=== PATIENT | female | born 2000 | race Caucasian/White ===

== ENCOUNTER 2022-04-22 07:45 | Inpatient (IN) ==
[2022-04-22] MEDS ORDERED: LIDOCAINE 1% LOCAL 20 ML VIAL INFIL PRN (07:52)
[2022-04-22] MEDS ORDERED: OXYTOCIN 30 UNITS/500 ML BAG IV PRN (07:52)
[2022-04-22 08:28] LABS: Hematocrit (blood only) 34.5 % (37.0-47.0); Mean Corpuscular Hemoglobin 29.4 pg (25.0-34.0); Mean Corpuscular Hgb Conc 34.8 g/dL (32.0-36.0); Mean Corpuscular Volume 84.6 fL (80.0-100.0); Mean Platelet Volume 9.6 fL (9.4-12.4); Platelet Count 252 K/uL (130-400); RDW Coefficient of Variation 14.5 % (11.5-14.5); RDW Standard Deviation 44.6 fL (36.4-46.3); Red Blood Count 4.08 M/uL (4.20-5.40); White Blood Count 12.09 K/ul (4.8-10.8)
[2022-04-22] MEDS: LACTATED RINGER'S 1,000 ML IV PRN (08:57)
--- NOTE | 2022-04-22 11:48 | Labor Progress Brief Note ---
Date of Service April 22, 2022 Assessment & Plan Admission and Anticipated Discharge Date Admission Date: April 22, 2022 Physical Exam Genitourinary: OB Exam Abdomen: + fundal height and + vertex Manual OB Exam: + cervical dilation fingertip, + cervical effacement 20% and + station high OB Exam Monitor Tracing: + external FHT monitor used, + external uterine monitor used, + category I and + normal FHT variability Cervix is posterior/firm/long closed and thick EFW [address] Cervidil for ripening Results & Data ([facility]) Vital Signs (Past 12 Hours) Vital Signs Temp Pulse Resp BP Pulse Ox O2 Del Method 04/22/22 09:13 37.1 C 20 Room Air 04/22/22 09:26 96 04/22/22 09:26 114 H 04/22/22 07:57 123 H 121/70
[2022-04-22] MEDS ORDERED: DINOPROSTONE 10 MG INSERT PV ONE (12:00)
--- NOTE | 2022-04-22 12:14 | Labor Progress Brief Note ---
Date of Service April 22, 2022 Assessment & Plan Admission and Anticipated Discharge Date Admission Date: April 22, 2022 Physical Exam Genitourinary: OB Exam Monitor Tracing: + external FHT monitor used, + external uterine monitor used, + category I and + normal FHT variability Cervidil 10 mg placed vaginally Results & Data ([facility]) Vital Signs (Past 12 Hours) Vital Signs Temp Pulse Resp BP Pulse Ox O2 Del Method 04/22/22 09:13 37.1 C 20 Room Air 04/22/22 12:11 104 H 04/22/22 12:11 114/81 04/22/22 09:26 96 04/22/22 09:26 114 H 04/22/22 07:57 123 H 121/70
[2022-04-23] MEDS ORDERED: BUTORPHANOL TARTRATE 1 MG/ML VIAL IV PRN (00:23)
[2022-04-23] MEDS ORDERED: miSOPROStoL 50 MCG TAB PO STA (00:23)
--- NOTE | 2022-04-23 00:27 | Labor Progress Brief Note ---
Date of Service April 23, 2022 Assessment & Plan Admission and Anticipated Discharge Date Admission Date: April 22, 2022 Physical Exam Genitourinary: Manual OB Exam: + cervical dilation 1 cm, + cervical effacement 50% and + station high OB Exam Monitor Tracing: + external FHT monitor used, + external uterine monitor used, + category I and + normal FHT variability Cervidil pulled out. Cervix is 1 cm and thick. Will start Cytotec for continued cervical ripening. Results & Data ([facility]) Vital Signs (Past 12 Hours) Vital Signs Temp Pulse Resp BP O2 Del Method 04/22/22 19:33 36.8 C 18 04/22/22 19:33 Room Air 04/22/22 15:00 Room Air 04/22/22 22:34 18 04/22/22 22:34 36.9 C 18 04/22/22 22:34 108 H 04/22/22 22:34 127/77 04/22/22 19:31 18 04/22/22 19:31 36.8 C 18 04/22/22 19:31 114 H 04/22/22 19:31 123/81 04/22/22 15:04 20 04/22/22 15:04 36.7 C 20 04/22/22 15:04 116 H 04/22/22 15:04 132/78
[2022-04-23] MEDS ORDERED: OXYTOCIN 30 UNITS/500 ML BAG IV PRN ×2 (07:19→13:36)
--- NOTE | 2022-04-23 07:21 | Obstetrical Progress Note ---
Date of Service April 23, 2022 Assessment & Plan (1) 40 weeks gestation of : Plan: Start oxytocin for augmentation, epidural at patient request Anticipate spontaneous vaginal delivery Admission and Anticipated Discharge Date Admission Date: April 22, 2022 Subjective Patient comfortable in bed, had worse contractions overnight and received 1 dose of Stadol. No complaints at this time Physical Exam Constitutional: WD/WN, vitals as above Genitourinary: heart tracing: Baseline 130, moderate variability, positive accelerations, no decelerations, category 1 tracing Tocometer: Irritable Cervix: 2-3/50/-1, AROM performed with moderate clear fluid, IUPC placed Results & Data ([facility]) Vital Signs (Past 12 Hours) Vital Signs Temp Pulse Resp BP Pulse Ox O2 Del Method 04/22/22 19:33 36.8 C 18 04/22/22 19:33 Room Air 04/23/22 07:06 20 04/23/22 07:06 36.9 C 20 04/23/22 07:09 100 H 120/78 04/23/22 04:32 36.6 C 101 H 18 123/81 04/23/22 02:26 95 04/23/22 02:26 100 H 04/23/22 02:26 98 H 94 04/23/22 02:21 105 H 97 04/23/22 02:20 100 H 94 04/23/22 02:16 105 H 93 04/23/22 02:14 104 H 94 04/23/22 02:11 106 H 94 04/23/22 02:06 107 H 94 04/23/22 02:04 105 H 94 04/23/22 02:01 106 H 95 04/23/22 01:57 109 H 94 04/23/22 01:56 106 H 95 04/23/22 01:52 107 H 94 04/23/22 01:51 109 H 94 04/23/22 01:46 106 H 94 04/23/22 01:47 104 H 94 04/23/22 01:41 95 04/23/22 01:41 106 H 04/23/22 01:41 102 H 94 04/23/22 01:36 103 H 95 04/23/22 01:35 109 H 94 04/23/22 01:31 100 H 98 04/23/22 01:26 95 02/15/23 01:26 102 H 04/23/22 01:26 102 H 137/68 04/22/22 22:34 18 04/22/22 22:34 36.9 C 18 04/22/22 22:34 108 H 04/22/22 22:34 127/77 04/22/22 19:31 18 04/22/22 19:31 36.8 C 18 04/22/22 19:31 114 H 04/22/22 19:31 123/81
[2022-04-23] MEDS ORDERED: fentaNYL citrate 100 MCG/2 ML VIAL ONE (07:48)
[2022-04-23] MEDS ORDERED: ePHEDrine sulfate 50 MG/ML AMP ONE (07:48)
[2022-04-23] MEDS ORDERED: SODIUM CHLORIDE 0.9% INJ 10 ML VIAL ONE (07:48)
[2022-04-23] MEDS ORDERED: BUPIVACAINE 0.25% 30 ML VIAL ONE (07:49)
[2022-04-23] MEDS ORDERED: LIDOCAINE 2%/EPINEPHRINE 1:200,000 20 ML SDV ONE (07:49)
[2022-04-23] MEDS ORDERED: fentaNYL 2MCG/ML ROPIVACAINE 1.25MG/ML 100 ML BAG EPI ONE (07:50)
[2022-04-23] MEDS: LACTATED RINGER'S 1,000 ML IV PRN (08:09)
[2022-04-23] MEDS ORDERED: NALOXONE HCL 0.4 MG/1 ML VIAL/CARP IV PRN (08:31)
[2022-04-23] MEDS ORDERED: diphenhydrAMINE 50 MG/ML VIAL IV PRN (08:31)
[2022-04-23] MEDS ORDERED: fentaNYL 2MCG/ML ROPIVACAINE 1.25MG/ML 100 ML BAG EPI PRN (08:31)
[2022-04-23] MEDS ORDERED: NALOXONE HCL 1 MG in SODIUM CHLORIDE 0.9% 1000ML 1,000 ML IV PRN (08:31)
[2022-04-23] MEDS ORDERED: NALBUPHINE HCL INJ 10 MG/ML AMP IV PRN (08:31)
[2022-04-23] MEDS ORDERED: ePHEDrine sulfate 50 MG/ML AMP IV PRN (08:31)
[2022-04-23] MEDS ORDERED: ONDANSETRON INJ 2 MG/ML 2 ML VIAL IV PRN (08:31)
--- NOTE | 2022-04-23 08:31 | Anesthesiology Consultation ---
Date of Service April 23, 2022 Assessment & Plan Chart Review Chart Review: Patient NOT seen in Pre Admission Testing and Acceptable Risk for Labor Epidural Consults Requested none ASA ASA2 Proposed Anesthesia Anesthesia Type: Labor Epidural Risk / Benefits Reviewed With: PT / POA / Parent / Guardian, Accepts Plan and Informed Consent Obtained History Height/Weight Height: 5 ft 3 in Weight: 108.862 kg Allergies Allergy/AdvReac Type Severity Reaction Status Date / Time duloxetine [From Cymbalta] Allergy Severe Depression Verified 04/06/22 14:47 Medications Home Medications Medication Instructions Recorded Confirmed Last Taken omega-3 fatty acids-fish oil 684 1 cap PO DAILY 04/17/22 04/22/22 04/21/22 mg-1,200 mg capsule,delayed release ondansetron HCl 4 mg tablet 4 mg PO Q6H PRN Nausea 04/17/22 04/22/22 04/14/22 2 0:00 prenat.vits,jarod,tun-anqw-ammpx 1 tab PO DAILY 04/17/22 04/22/22 04/21/22 Active Medications Generic Name Dose Route Start Last Admin Trade Name Freq PRN Reason Stop Dose Admin Butorphanol Tartrate 1 mg 04/23/22 00:23 04/23/22 01:32 Butorphanol Tartrate 1 Mg/Ml Vial IV 05/23/22 00:22 1 mg Q2HWA PRN Administration Pain Lactated Ringer's 1,000 mls @ 125 mls/hr 04/22/22 07:52 04/23/22 08:09 Lr IV 04/24/22 07:51 999 mls/hr .Q8H PRN Administration L&D Protocol Protocol Past Medical History Medical History Anemia Anxiety and depression Insomnia disorder Panic disorder Tension headache Exercise / Class Metabolic Activity II 4-5 Yardwork/Stairs/Walk up hill Past Family History Family History Father Myocardial infarction Father Hypertension Past Surgical History Surgical History Puposky teeth removed Past Anesthesia History No Hx of Anesthesia Complications and No Family Hx of Anesthesia Complications History of PONV No Hx of PONV and No Hx of Motion Sickness Social History Smoking Status: Never smoker Hx Alcohol Use: No Hx Substance Use: No substance use type: does not use Physical Exam Vital Signs Last Vital Signs Temp 36.9 C 04/23/22 07:06 Pulse 101 H 04/23/22 08:28 Resp 20 04/23/22 07:06 BP 110/56 L 04/23/22 08:28 Pulse Ox 97 04/23/22 08:27 O2 Del Method Room Air 04/22/22 19:33 ENMT Mouth: no dentition abnormality Thyromental Distance: > or= 3.5 Finger Breadths Mallampati Class: II Neck normal visual inspection Respiratory normal respiratory effort Auscultation: lungs clear to auscultation bilaterally Cardiovascular Rate/Rhythm: regular rate and regular rhythm Psychiatric Orientation: alert Testing Laboratory Results 04/22/22 08:13 Blood Type Cancelled 04/22/22 08:13 Blood Type O Positive 04/22/22 08:13 Antibody Screen Cancelled 04/22/22 08:13 Antibody Screen NEGATIVE 04/22/22 08:13
--- NOTE | 2022-04-23 11:47 | Obstetrical Progress Note ---
Date of Service April 23, 2022 Assessment & Plan (1) 40 weeks gestation of : Plan: Continue oxytocin for augmentation Anticipate spontaneous vaginal delivery Admission and Anticipated Discharge Date Admission Date: April 22, 2022 Subjective Patient comfortable in bed, no complaints Epidural in place Physical Exam Constitutional: WD/WN, vitals as above Genitourinary: FHT: baseline 130, mod variability, +accels, no decels cat I tracing Tony: q1-3 min pit at 10 Cx: 5/90/-1 small amount of caput noted approx 2 cm in size, no moulding noted. Sutures felt Results & Data ([facility]) Vital Signs (Past 12 Hours) Vital Signs Temp Pulse Resp BP Pulse Ox 04/23/22 11:42 92 H 99 04/23/22 11:38 89 124/79 04/23/22 11:37 82 98 04/23/22 11:32 93 H 97 04/23/22 11:27 93 H 94 04/23/22 11:24 90 94 04/23/22 11:22 93 H 94 04/23/22 11:23 90 128/74 04/23/22 11:17 95 04/23/22 11:17 92 H 04/23/22 11:17 93 H 94 04/23/22 11:12 92 H 94 04/23/22 11:11 92 H 94 04/23/22 11:08 95 H 135/72 04/23/22 11:07 97 H 93 04/23/22 11:06 96 H 94 04/23/22 11:02 97 H 95 04/23/22 11:00 87 20 94 04/23/22 10:57 93 H 92 04/23/22 10:54 82 94 04/23/22 10:52 84 93 04/23/22 10:53 97 H 137/76 04/23/22 10:47 94 04/23/22 10:47 94 H 04/23/22 10:47 86 93 04/23/22 10:42 94 H 92 04/23/22 10:39 93 H 93 04/23/22 10:38 94 H 122/69 04/23/22 10:37 97 H 94 04/23/22 10:32 92 H 93 04/23/22 10:27 94 H 94 04/23/22 10:23 93 H 04/23/22 10:22 90 94 04/23/22 10:23 93 H 128/69 94 04/23/22 10:17 94 H 94 04/23/22 10:12 94 04/23/22 10:12 98 H 04/23/22 10:12 97 H 94 04/23/22 10:09 90 124/76 04/23/22 10:07 94 04/23/22 10:07 95 H 04/23/22 10:07 93 H 94 04/23/22 10:02 99 H 93 04/23/22 10:01 91 H 92 04/23/22 09:57 100 H 95 04/23/22 09:54 102 H 94 04/23/22 09:52 95 H 94 04/23/22 09:53 96 H 122/76 04/23/22 09:49 97 H 94 04/23/22 09:47 99 H 94 04/23/22 09:43 95 H 94 04/23/22 09:42 98 H 94 04/23/22 09:38 96 H 129/72 04/23/22 09:37 95 H 94 04/23/22 09:32 100 H 92 04/23/22 09:27 102 H 95 04/23/22 09:24 105 H 130/74 94 04/23/22 09:22 100 H 97 04/23/22 09:19 99 H 94 04/23/22 09:17 109 H 95 04/23/22 09:16 101 H 124/73 04/23/22 09:12 98 H 95 04/23/22 09:07 108 H 96 04/23/22 09:02 104 H 98 04/23/22 08:57 108 H 97 04/23/22 08:55 18 04/23/22 08:55 36.9 C 18 04/23/22 08:52 105 H 132/73 96 04/23/22 08:49 101 H 133/73 04/23/22 08:47 100 H 96 04/23/22 08:43 111 H 104/58 L 04/23/22 08:42 103 H 95 04/23/22 08:41 108 H 97/55 L 94 04/23/22 08:40 98 H 79/51 L 04/23/22 08:38 106 H 75/51 L 04/23/22 08:37 96 04/23/22 08:37 94 H 04/23/22 08:37 96 H 115/54 L 04/23/22 08:34 100 H 108/52 L 04/23/22 08:32 98 H 102/57 L 96 04/23/22 08:30 96 H 104/53 L 04/23/22 08:28 101 H 110/56 L 04/23/22 08:27 102 H 97 04/23/22 08:26 101 H 116/55 L 04/23/22 08:24 101 H 120/57 L 04/23/22 08:22 101 H 127/59 L 96 04/23/22 08:20 102 H 125/77 04/23/22 08:17 106 H 96 04/23/22 08:12 104 H 99 04/23/22 08:07 112 H 98 04/23/22 08:02 99 H 98 04/23/22 07:06 20 04/23/22 07:06 36.9 C 20 04/23/22 07:09 100 H 120/78 04/23/22 04:32 36.6 C 101 H 18 123/81 04/23/22 02:26 95 04/23/22 02:26 100 H 04/23/22 02:26 98 H 94 04/23/22 02:21 105 H 97 04/23/22 02:20 100 H 94 04/23/22 02:16 105 H 93 04/23/22 02:14 104 H 94 04/23/22 02:11 106 H 94 04/23/22 02:06 107 H 94 04/23/22 02:04 105 H 94 04/23/22 02:01 106 H 95 04/23/22 01:57 109 H 94 04/23/22 01:56 106 H 95 04/23/22 01:52 107 H 94 04/23/22 01:51 109 H 94 04/23/22 01:46 106 H 94 04/23/22 01:47 104 H 94 04/23/22 01:41 95 04/23/22 01:41 106 H 04/23/22 01:41 102 H 94 04/23/22 01:36 103 H 95 04/23/22 01:35 109 H 94 04/23/22 01:31 100 H 98 04/23/22 01:26 95 04/23/22 01:26 102 H 04/23/22 01:26 102 H 137/68
[2022-04-23] MEDS ORDERED: NURSING L&D Epidural Breakthrough Pain Update ONE (12:25)
[2022-04-23] MEDS ORDERED: oxyCODONE/ACETAMINOPHEN 5mg/325mg TAB PO PRN (13:36)
[2022-04-23] MEDS ORDERED: ACETAMINOPHEN 325 MG TAB PO PRN (13:36)
[2022-04-23] MEDS ORDERED: BENZOCAINE 20% AER SPR 82.5 GM CAN EXT PRN (13:36)
[2022-04-23] MEDS ORDERED: bisacodyL 10 MG SUPP PR PRN (13:36)
[2022-04-23] MEDS ORDERED: HYDROCORTISONE ACETATE 25 MG SUPP PR PRN (13:36)
[2022-04-23] MEDS ORDERED: DIPHTHERIA/TETANUS/PERTUSSIS 0.5mL SYR/VIAL (Age 7+yrs) IM ONE (13:36)
--- NOTE | 2022-04-23 13:38 | Delivery Summary ---
Vaginal Delivery Summary Date of Service April 23, 2022 Vaginal Delivery Summary Delivery Note History synopsis: Patient is a 21-year-old G1, P0 who was admitted at 40 weeks and 5 days for induction of labor for postterm gestation. She received dose of Cervidil yesterday, and when the Cervidil was removed she was 1 cm dilated. She was john too much at that time to give Cytotec. When I checked her this morning when I came to labor and delivery she was 2 to 3 cm dilated, artificial rupture of membranes was performed and patient was started on oxytocin for augmentation. She received an epidural for pain control. She was rechecked and found to be 5 cm. She called out to nursing complaining of increasing pressure and she was found to be anterior lip, quickly progressed to complete and she pushed for 4 pushes before I was called for delivery. Delivery Summary: Patient was placed in the dorsal lithotomy position. She was prepped and draped in the usual sterile fashion. Upon maternal pushing the head was delivered atraumatically followed by the anterior shoulders, posterior shoulders then the remainder of the infants body. The was immediately placed on mom's abdomen, dried and stimulated. Delayed cord clamping for 60 seconds was performed. The infants mouth and nose were bulb suctioned by nursing staff. A male was delivered at 1317 with Apgars of 9 at 1 minute and 9 at 5 minutes. Weight is currently pending. Cord blood gases were not obtained. The placenta delivered intact with three vessel cord. Placenta was sent to pathology (hold). Thirty units of Pitocin were added to the IV fluid and allowed to run freely. Uterine massage was performed until uterus was deemed firm. Upon inspection of the perineum, cervix was intact. Noted first-degree laceration which was repaired with 3-0 Vicryl in a running fashion. Noted right labial laceration that extended to the periurethral area which was closed with 3-0 Vicryl in a running fashion. Upon re-inspection the patient was hemostatic. Uterus again massaged and found to be firm. Needle and sponge counts were correct. Patient was stable and allowed to recover in L&D room. was stable and remained in room with mother in the labor and delivery room.
--- NOTE | 2022-04-23 16:10 | Anesthesia Procedure Note ---
Date of Service April 23, 2022 Anesthesia Post Epidural Note Vital Signs Vital Signs: Temp Pulse Resp BP Pulse Ox O2 Del Method 37.1 C 102 H 20 120/76 98 Room Air 04/23/22 11:48 04/23/22 16:08 04/23/22 15:20 04/23/22 16:08 04/23/22 13:18 04/22/22 19:33 Pain Intensity Bilateral Abdomen: Pain Intensity: 0 Notes Mental Status: alert / awake / arousable Nausea / Vomiting: adequately controlled Pain: adequately controlled Airway Patency, RR, SpO2: stable & adequate BP & HR: stable & adequate Hydration State: stable & adequate Neuraxial Anesthesia: was administered and sensory block is resolving Anesthetic Complications: no major complications apparent and Pt Satisfied with anesthetic care Epidural: Removed without complications and With tip intact
[2022-04-23] MEDS: DOCUSATE SODIUM 100 MG CAP PO SCH (20:56)
[2022-04-23] MEDS: IBUPROFEN 600 MG TAB PO PRN (20:56)
[2022-04-24] MEDS: IBUPROFEN 600 MG TAB PO PRN ×4 (03:30→20:45)
[2022-04-24 06:21] LABS: Hemoglobin 10.4 g/dl (12.0-16.0); Mean Corpuscular Hgb Conc 33.5 g/dL (32.0-36.0); Mean Corpuscular Volume 86.4 fL (80.0-100.0); Mean Platelet Volume 9.5 fL (9.4-12.4); Platelet Count 242 K/uL (130-400); RDW Coefficient of Variation 14.7 % (11.5-14.5); Red Blood Count 3.59 M/uL (4.20-5.40)
[2022-04-24] MEDS: DOCUSATE SODIUM 100 MG CAP PO SCH ×2 (08:28→20:46)
[2022-04-24] MEDS: PRENATAL VITAMIN 1 TAB PO SCH (08:29)
[2022-04-24] MEDS: FERROUS SULFATE 325 MG TAB PO SCH (08:29)
--- NOTE | 2022-04-24 08:36 | Obstetrical Progress Note ---
Date of Service April 24, 2022 Assessment & Plan Admission and Anticipated Discharge Date Admission Date: April 22, 2022 Subjective Patient is seen and examined. She feels well, no complaints. Ambulating without dizziness Voiding without difficulty Tolerating regular diet with out N&V Bleeding is minimal No fever/ chills/ CP/ SOB/ N&V/ Leg pain Breast feeding without problems Vital Signs Temp Pulse Resp BP O2 Del Method 04/24/22 03:15 36.7 C 90 16 126/83 Room Air 04/23/22 23:00 36.7 C 99 H 18 126/80 Room Air Lab Results 04/22/22 04/22/22 04/22/22 Range/Units 08:00 08:13 08:13 WBC 12.09 H (4.8-10.8) K/ul RBC 4.08 L (4.20-5.40) M/uL Hgb 12.0 (12.0-16.0) g/dl Hct 34.5 L (37.0-47.0) % MCV 84.6 (80.0-100.0) fL MCH 29.4 (25.0-34.0) pg MCHC 34.8 (32.0-36.0) g/dL RDW Std Deviation 44.6 (36.4-46.3) fL RDW Coeff of Estefania 14.5 (11.5-14.5) % Plt Count 252 (130-400) K/uL MPV 9.6 (9.4-12.4) fL SARS-CoV-2, RNA, NAAT NEGATIVE (NEGATIVE) Blood Type O Positive Antibody Screen NEGATIVE 04/22/22 04/24/22 Range/Units 08:13 05:58 WBC 14.50 H (4.8-10.8) K/ul RBC 3.59 L (4.20-5.40) M/uL Hgb 10.4 L (12.0-16.0) g/dl Hct 31.0 L (37.0-47.0) % MCV 86.4 (80.0-100.0) fL MCH 29.0 (25.0-34.0) pg MCHC 33.5 (32.0-36.0) g/dL RDW Std Deviation 47.0 H (36.4-46.3) fL RDW Coeff of Estefania 14.7 H (11.5-14.5) % Plt Count 242 (130-400) K/uL MPV 9.5 (9.4-12.4) fL SARS-CoV-2, RNA, NAAT (NEGATIVE) Blood Type Cancelled Antibody Screen Cancelled PE: General: Alert, orientedx3, NAD Abd: soft, NT, fundus firm, below Umbilicus Perineum intact, Lochia rubra minimal Ext; NT, no edema AP: 21 yo s/p , ppd# 1 VSS Afebrile doing well Continue routine care All questions were answered D/C home tomorrow Results & Data ([facility]) Vital Signs (Past 12 Hours) Vital Signs Temp Pulse Resp BP O2 Del Method 04/24/22 03:15 36.7 C 90 16 126/83 Room Air 04/23/22 23:00 36.7 C 99 H 18 126/80 Room Air
[2022-04-24] MEDS ORDERED: bisacodyL 5 MG TABEC PO SCH (20:00)
[2022-04-25] MEDS: IBUPROFEN 600 MG TAB PO PRN ×2 (03:22→08:09)
[2022-04-25 07:02] LABS: Hematocrit (blood only) 30.3 % (37.0-47.0); Hemoglobin 10.3 g/dl (12.0-16.0)
[2022-04-25] MEDS: PRENATAL VITAMIN 1 TAB PO SCH (08:09)
[2022-04-25] MEDS: DOCUSATE SODIUM 100 MG CAP PO SCH (08:09)
[2022-04-25] MEDS: FERROUS SULFATE 325 MG TAB PO SCH (08:11)
--- NOTE | 2022-04-25 10:39 | Obstetrical Progress Note ---
Date of Service April 25, 2022 Subjective Ambulation: ambulating normally Voiding: no voiding problems Passing Gas:: Yes Diet Tolerance:: regular diet Lochia:: Small Feeding Type:: breast feeding Current Pain Level(1-10): 0 doing well. plans for d/c today Physical Exam Constitutional WD/WN, vitals as above Gastrointestinal (Abdomen) Inspection/Auscultation: abdomen normal to inspection fundus firm below U and non-tender Musculoskeletal Extremities: extremities normal to inspection Skin no rashes, warm and dry Neurologic patellar DTR's 2+ bilat, sensation intact Psychiatric A+Ox3, euthymic affect Results & Data ([facility]) Vital Signs (Past 12 Hours) Vital Signs Temp Pulse Resp BP Pulse Ox O2 Del Method 04/25/22 00:00 36.8 C 87 18 123/87 97 Room Air Laboratory Results Laboratory Results - last 72 hr 04/22/22 04/22/22 04/24/22 08:13 08:13 05:58 WBC 14.50 H RBC 3.59 L Hgb 10.4 L Hct 31.0 L MCV 86.4 MCH 29.0 MCHC 33.5 RDW Std Deviation 47.0 H RDW Coeff of Estefania 14.7 H Plt Count 242 MPV 9.5 Blood Type O Positive Cancelled Antibody Screen NEGATIVE Cancelled 04/25/22 06:17 WBC RBC Hgb 10.3 L Hct 30.3 L MCV MCH MCHC RDW Std Deviation RDW Coeff of Estefania Plt Count MPV Blood Type Antibody Screen
== END 2022-04-25 13:50 | disposition home or self-care (01) | DRG 807 ==
LOC: 4S1 07:45 → 4E2 04-23 16:20